=== PATIENT | female | born 1975 | race Caucasian/White ===

== ENCOUNTER 2022-06-03 10:03 | Day surgery (SDC) | payer BC, OTHER ==
[2022-06-03] MEDS ORDERED: Lactated Ringers 1,000 ML IV ONE ×2 (10:14→12:34)
[2022-06-03] MEDS ORDERED: Lactated Ringers 1,000 ML IV SCH (10:30)
[2022-06-03] MEDS ORDERED: DIPRIVAN 200 MG/20 ML IV ONE ×2 (11:29→12:05)
[2022-06-03] MEDS ORDERED: Xylocaine-Mpf 2% 5 Ml Vial ONE (11:29)
[2022-06-03] MEDS ORDERED: Versed 2 MG/2 ML Injection ONE (11:43)
[2022-06-03 13:30] VITALS: BP 144/89; PULSE 53; O2SAT 100
--- NOTE | 2022-06-04 11:14 | OP ---
SURGERY DATE: 06/03/2022 SURGERY TIME: 1155 PREOPERATIVE DIAGNOSIS: 1. DUE FOR SCREENING COLONOSCOPY. 2. ALSO, HAS REFLUX DISEASE. POSTOPERATIVE DIAGNOSIS: 1. MILD ANTRAL GASTRITIS. 2. GASTRIC POLYPS. 3. MILD SIGMOID DIVERTICULOSIS. 4. RECTOSIGMOID POLYP. PROCEDURE: 1. EGD with cold snare gastric polypectomy and cold biopsies. 2. Colonoscopy with cold forceps polypectomy. SURGEON: Dr. Alvina Gong. ANESTHESIA: MAC. SPECIMENS: 1. Antral biopsy. 2. Lower gastric body polyps. 3. Rectosigmoid polyp. ESTIMATED BLOOD LOSS: Minimal. COMPLICATIONS: None. PROCEDURE DETAILS: This is a patient who presents for screening colonoscopy. She also has reflux and would like an EGD. Risks, benefits, alternatives, H&P, and consent all reviewed with her and confirmed. All questions answered to patient's satisfaction. She was brought to the endoscopy suite. Laid in the left lateral decubitus position. Complete time-out performed. Scope gently introduced into the mouth, oropharynx, down to the esophagus, stomach, and duodenum. The duodenum was normal. In the stomach, the patient had some mild gastritis in the antrum. She also had one gastric polyp that was significant in the body. It still looks benign, but it was larger than the remainder of the polyps. She also had multiple other very small benign-appearing polyps in the stomach. We then took a cold forceps biopsy in the antrum to rule out H-pylori. The site was hemostatic. We then used a cold snare to take the slightly larger gastric body polyp. This was taken in entirety, retrieved, and sent to pathology. Site hemostatic. The remainder of the polyps are miniscule and benign appearing. We did a retroflex view. There was no obvious hiatal hernia. There were no other gastric lesions or concerns. The scope was then carefully withdrawn into the distal esophagus. Her gastroesophageal junction looked very good. There was no Jennings's esophagus. There is no obvious hiatal hernia. Her gastroesophageal junction is at 39 cm. The scope was then fully removed. The remainder of the esophagus was normal. The patient tolerated the procedure well. She was then positioned for colonoscopy. First, a rectal exam was done. This was normal. The scope was then inserted and gently advanced to the level of cecum. Appendiceal orifice and ileocecal valve were visualized. These were normal. The prep was good. The scope was then carefully withdrawn taking a circumferential view. The patient had mild diverticulosis in her sigmoid with multiple small pockets. She also had a rectosigmoid polyp which was small, semisessile, and taken with a cold forceps in entirety and sent to pathology. This site was hemostatic and the scope was fully removed. The remainder of the exam was normal including the rectum which looked normal. The patient tolerated the procedure very well. There were no immediate complications. PLAN: EGD on an as needed basis and colonoscopy for surveillance in 10 years due to the finding of one small polyp.
== END 2022-06-03 13:39 | disposition home or self-care (01) ==
LOC: SDC 10:03
PROVIDERS: ATTEND Surgery
DX: Z12.11 Encounter for screening for malignant neoplasm of colon (principal); K21.9 Gastro-esophageal reflux disease without esophagitis; K29.70 Gastritis, unspecified, without bleeding; K31.7 Polyp of stomach and duodenum; K57.90 Diverticulosis of intestine, part unspecified, without perforation or abscess without bleeding; K63.5 Polyp of colon
CPT/HCPCS: 81025; J2250; J2704